=== PATIENT | male | born 1955 | race Caucasian/White ===

== ENCOUNTER 2020-06-23 14:32 | Emergency (ER) | payer OTHER ==
[2020-06-23] MEDS ORDERED: CEPHALEXIN500 MG PO (16:02)
== END 2020-06-23 16:15 | disposition home or self-care (01) ==
LOC: FER 14:32
DX: S71.111A Laceration without foreign body, right thigh, initial encounter (principal); Z23 Encounter for immunization; W29.8XXA Contact with other powered hand tools and household machinery, initial encounter; Y92.009 Unspecified place in unspecified non-institutional (private) residence as the place of occurrence of the external cause
CPT/HCPCS: 90471; 90715